=== PATIENT | female | born 1975 | race Caucasian/White ===

== ENCOUNTER 2023-03-30 21:12 | Emergency (ER) | payer BC ==
[2023-03-30] MEDS ORDERED: Dexamethasone/Neomycin/Polymyxin B Ophth Oint 3.5 GM Tube ONE (22:59)
[2023-03-30] MEDS ORDERED: Carboxymethylcellulose Sodium 1% Ophth Gel 15 ML Bottle EYEBOTH PRN (23:29)
[2023-03-31] MEDS ORDERED: Dexamethasone/Neomycin/Polymyxin B Ophth Oint 3.5 GM Tube ONE ×2 (00:27→00:30)
== END 2023-03-31 00:50 | disposition home or self-care (01) ==
LOC: JD.ED 21:12
DX: H16.203 Unspecified keratoconjunctivitis, bilateral (principal); Z91.048 Other nonmedicinal substance allergy status; Z79.899 Other long term (current) drug therapy
CPT/HCPCS: 99283; A9270